=== PATIENT | female | born 1985 | race Caucasian/White ===

== ENCOUNTER 2024-07-28 08:03 | Emergency (ER) | payer OTHER ==
[~2024-07-28] VITALS: Ht 162.6 cm; Wt 72.6 kg
[2024-07-28] MEDS ORDERED: SUBOXONE 8 MG-1 EACH SL ×2 (08:17→08:38)
[2024-07-28] MEDS ORDERED: Buprenorphine HCL/Naloxone HCL 8MG-2MG Tab SL ONE (08:35)
== END 2024-07-28 08:56 | disposition home or self-care (01) ==
LOC: ER 08:03
DX: F11.90 Opioid use, unspecified, uncomplicated (principal); Z76.0 Encounter for issue of repeat prescription; Z88.0 Allergy status to penicillin; Z79.899 Other long term (current) drug therapy
CPT/HCPCS: 99281; A9270

== ENCOUNTER 2025-03-09 06:47 | Emergency (ER) | payer OTHER ==
[~2025-03-09] VITALS: Ht 165.1 cm; Wt 74.8 kg
[~2025-03-09 06:47] MED LIST: SUBOXONE 8 MG-1 EACH SL
[2025-03-09] MEDS ORDERED: Buprenorphine HCL/Naloxone HCL 8MG-2MG Tab SL ONE (07:40)
== END 2025-03-09 08:06 | disposition home or self-care (01) ==
LOC: ER 06:47
DX: Z76.0 Encounter for issue of repeat prescription (principal); Z87.891 Personal history of nicotine dependence
CPT/HCPCS: 99281; A9270